=== PATIENT | male | born 1955 ===

== ENCOUNTER 2022-08-28 11:48 | Outpatient (REF) | payer MEDICARE, OTHER, SELFPAY ==
[2022-08-28 13:29] LABS: Influenza A PCR NEGATIVE (Negative); Influenza B PCR NEGATIVE (Negative); Resp Syncy Virus RNA Qual PCR NEGATIVE (Negative); SARS COV2 PCR INHOUSE NEGATIVE (Negative)
== END 2022-08-28 11:49 | disposition home or self-care (01) ==
LOC: HO.LNP 11:48
PROVIDERS: Visit Provider Nurse Practitioner Family
DX: Z20.822 Contact with and (suspected) exposure to COVID-19 (principal); J06.9 Acute upper respiratory infection, unspecified
CPT/HCPCS: 0241U

== ENCOUNTER 2024-10-12 14:59 | Outpatient (REF) | payer MEDICARE, OTHER, SELFPAY | END 2024-10-12 15:00 | disposition home or self-care (01) | LOC: HO.LNP 14:59 | PROVIDERS: Visit Provider Physician Assistant | DX: H61.22 Impacted cerumen, left ear (principal); H66.003 Acute suppurative otitis media without spontaneous rupture of ear drum, bilateral; J02.9 Acute pharyngitis, unspecified | CPT/HCPCS: 69210; 87070; 99202 ==

== ENCOUNTER 2024-10-12 14:59 | Outpatient (AMB) | payer MEDICARE, OTHER, SELFPAY ==
--- NOTE | 2024-10-12 15:50 | AM.OFFWIN_ITS ---
Intake Vital Signs 10/12/24 15:53 Height 6 ft 3 in Weight 265 lb BMI 33.1 BP 124/80 Blood Pressure Location Rt brachial Position Sitting Pulse 79 Pulse Source Pulse Oximeter Temp 97.5 F Temp Source Oral Pulse Oximetry (%) 97 Oxygen Delivery Method Room Air Intake Visit Reasons: EP Sore throat(white patch), body aches Intake Note: Patient here for body aches, sore throat that has been present for about 1 week. Patient Tobacco Use Status: Former Tobacco user Allergies No Known Allergies Allergy (Verified 10/12/24 15:55) HPI HPI Comments History of Present Illness Details History - The patient is a 69-year-old male pres enting with ear pain and throat symptoms. - Ear complaints include wax buildup and bilateral discomfort with tenderness, treated at home with Q-tips and rubbing alcohol, potentially worsening the condition. - The throat symptoms reported include a scratchy sensation, a cough, and observing a white nodule on the adenoid. These symptoms have been persistent for about two weeks. - Other respiratory symptoms include a r unny nose for one to two weeks, and a scratchy throat since the night before, but no fever was presently recorded. - COVID-19 testing was performed, yieldi ng negative results for both the patient and his following a period of general malaise for about five days. - The patient denies experiencing shortn ess of breath, wheezing, headache, or fatigue. - No alcohol or tobacco use since quitti ng smoking in 1984. Previously managed ear infections with antibiotics in past occurrences. - The patient has employed home interven tions such as a neti pot and gargling for symptom relief. Physical Exam General: Cooperative, healthy appearing, comfortable and no acute distress Orientation/consciousness: Patient oriented x3 Limitations: No limitations Head: Normal to inspection Ears: Hearing grossly normal bilaterally, external ears normal, TM's small purulent effusions bilaterally, after cerumen removed from left ear Nose: Normal external nose present, Normal nares present and No nasal discharge present Face and sinus: Normal facial exam and Yes sinuses nontender Mouth: Normal oral and palatal mucosa present and moist mucous membranes Throat: Yes tonsils normal, Yes uvula midline. Posterior oropharynx erythema, no exudate noted. Eyes: Appearance normal, both eyes and all related structures Neck: Normal visual inspection Respiratory: normal respiratory effort Skin: No rashes or lesions noted Neuro: Patient oriented x3 Extremities: Normal to inspection and Yes no clubbing, cyanosis or edema PFSH Social History Patient Tobacco Use Status: Former Tobacco user Review of Systems Const All systems reviewed & are unremarkable except as noted in HPI and below Physical Exam Vital Signs: Last Vital Signs Temp 97.5 F 10/12/24 15:53 Pulse 79 10/12/24 15:53 BP 124/80 10/12/24 15:53 Pulse Ox 97 10/12/24 15:53 Oxygen Delivery Method Room Air 10/12/24 15:53 BMI result Body Mass Index 33.1 Office Procedures Cerumen Removal From which ear canal was the cerumen removed: left Removal: irrigation and otoscope w/curette Notes: patient tolerated procedure well, no complications and ear canal clear [id number] Irrigation/Lavage Assessment & Plan Assessment & Plan (1) Impacted cerumen, left ear: Code(s): H61.22 - Impacted cerumen, left ear Plan: The patient presents with acute pharyngitis and bilateral acute otitis media, associated with wax impaction. Commencing treatment with Augmentin will target both ear infections and any underlying streptococcal pharyngitis. The initial antibiotic treatment will extend over five days, with the potential to adjust duration based on the throat culture results. A throat culture has been requested to confirm bacterial presence, ensuring appropriate antibiotic duration. If positive, will need to add 5 days of treatment and call patient. The patient has been advised against using Q-tips for earwax management, and instead, Debrox drops are proposed for effective softening and maintenance of ear passages. This plan focuses on resolving the current infections while preventing recurrence through proper ear care education. Patient was informed and verbally consented to the use of an ambient scribe for clinic note documentation during this visit (2) Otitis media: Code(s): H66.90 - Otitis media, unspecified, unspecified ear Qualifiers: Otitis media type: suppurative Chronicity: acute Laterality: bilateral Recurrence: non-recurrent Spontaneous tympanic membrane rupture: without spontaneous rupture Qualified Code(s): H66.003 - Acute suppurative otitis media without spontaneous rupture of ear drum, bilateral Plan: as above (3) Acute pharyngitis: Code(s): J02.9 - Acute pharyngitis, unspecified Qualifiers: Pharyngitis/tonsillitis etiology: unspecified etiology Qualified Code(s): J02.9 - Acute pharyngitis, unspecified Plan: as above Orders: Orders Throat Culture Today J02.9 - Acute pharyngitis, unspecified Medications: New amoxicillin-pot clavulanate 875-125 mg 1 tab PO Q12H 10 tabs 0RF Coding Level of Care Code New Pt Level 4 (20558) Diagnoses Impacted cerumen, left ear H61.22 Non-recurrent acute suppurative otitis media of both ears without spontaneous rupture of tympanic membranes H66.003 Otitis media type: suppurative Chronicity: acute Laterality: bilateral Recurrence: non-recurrent Spontaneous tympanic membrane rupture: without spontaneous rupture Acute pharyngitis, unspecified etiology J02.9 Pharyngitis/tonsillitis etiology: unspecified etiology CPT Codes Office Procedure - CPT: 98419-Gey Irrigation/Lavage ([id number])
[2024-10-12 15:53] VITALS: BP 124/80; PULSE 79; TEMP 36.4; O2SAT 97; BMI 33.1
== END 2024-10-12 16:21 | disposition home or self-care (01) ==
PROVIDERS: Visit Provider Physician Assistant
DX: J02.9 Acute pharyngitis, unspecified (principal); H66.003 Acute suppurative otitis media without spontaneous rupture of ear drum, bilateral; H61.22 Impacted cerumen, left ear

== ENCOUNTER 2025-10-12 15:43 | Outpatient (AMB) | payer MEDICARE, OTHER, SELFPAY ==
[2025-10-12 15:58] VITALS: BP 132/78; PULSE 64; RESP 17; TEMP 36.6; O2SAT 98; BMI 34.4
--- NOTE | 2025-10-12 15:58 | MHC.OFFWIV ---
Intake Vital Signs 10/12/25 15:58 Height 6 ft 3 in Weight 275 lb 8 oz BMI 34.4 BP 132/78 Blood Pressure Location Lt brachial Position Sitting Respiration 17 Pulse 64 Pulse Source Pulse Oximeter Temp 97.9 F Temp Source Oral Pulse Oximetry (%) 98 Oxygen Delivery Method Room Air Intake Visit Reasons: EP Sinus infection? Flu a+ last week Intake Note: Pt is here today for possible sinus infection. Pt states he tested positive for flu a week ago. Patient Tobacco Use Status: Former Tobacco user Allergies No Known Allergies Allergy (Verified 10/12/25 15:58) Do you need a note to return to daycare/school/sports/work: No HPI HPI Comments History of Present Illness Details Patient is a 70yo M who presents to office with concern sinusitis He tested + for Influenza A 1 week ago Taking Robitussin without relief States this morning he felt a little better but worsening sinus pressure/foul odor States he used neddy pot sinus rinses with foul odor and a lot of mucus discharge from nose States cough is lingering and slight wheeze Feels like phlegm is in lungs and unable to coughWorse in the morning after using CPAP at night No CP or SOB No body aches, fever or chills currently; he did have them last week. PFSH Social History Patient Tobacco Use Status: Former Tobacco user Review of Systems Const Denies body aches, Denies chills, Reports fatigue and Denies fever(s) ENT Denies otalgia, Reports nasal congestion, Denies sinus pain, Denies sore throat and Reports other (foul odor from sinus mucus) Card Denies chest pain Resp Reports cough GI Denies abdominal pain, Denies diarrhea and Denies vomiting Musc Denies myalgias Endo Reports fatigue Physical Exam Exam Exam: General: Non-toxic, NAD. Speaking full sentences. Skin: Warm dry throughout Eye: EOMI HENT: Airway patent. Uvula midline. No pharyngeal erythema or edema. No INSPECTOR SOLDERING. Slightly edematous turbinates. No septal hematoma Bilateral canals clear. TM non-erythematous, non-bulging. No TM perforation or hemotympanum noted. Respiratory: CTA bilaterally. No wheezes, rales or rhonchi Cardiac: RRR. No murmur MSK: Full ROM extremities. Neurology: Alert. No aphasia or facial droop. Gait without abnormality Psych: Good mood and affect Vital Signs: Last Vital Signs Temp 97.9 F 10/12/25 15:58 Pulse 64 10/12/25 15:58 Resp 17 10/12/25 15:58 BP 132/78 10/12/25 15:58 Pulse Ox 98 10/12/25 15:58 Oxygen Delivery Method Room Air 10/12/25 15:58 BMI result Body Mass Index 34.4 Assessment & Plan Assessment & Plan (1) Upper respiratory tract infection: Code(s): J06.9 - Acute upper respiratory infection, unspecified Qualifiers: URI type: unspecified viral URI Qualified Code(s): J06.9 - Acute upper respiratory infection, unspecified Plan: Patient seen and evaluated. Lungs CTA No sinus of bacterial sinusitis on exam Prednisone (with food. Avoid nsaids and taking too late at night) Tessalon Discussed s/s that are concerning for bacterial infection and when to call and patient gave verbal understanding and had no additional questions or concerns at time of discharge All questions answered Medications: New benzonatate 100 mg PO BID-TID PRN 20 caps 0RF cough prednisone 40 mg (2 x 20 mg) PO DAILY 10 tabs 0RF Coding Level of Care Code Est Pt Level 3 (80028) Diagnoses Viral upper respiratory tract infection J06.9 URI type: unspecified viral URI
--- OUTSIDE RECORDS SUMMARY | 2025-10-12 18:54 | XMS_ITS | Patient Health Record ---
Author Organization [facility] Address [address] [place] [id number] Care Team Providers Care Postmaster Relief Name Role Phone Prince Alejandra DO Primary Care Provider Unavailab chuckie Ford Lou Unavailable [phone] Allergies No Known Allergies Reason For Referral No Information Medications Medication SIG (Take, Route, Frequency, Duration) Notes Start Date End Date Status Turmeric Active Vitamin D3 25 MCG (1000 UT) 1 tablet Ora lly Once a day; Duration: 30 day(s) Active Probiotic Active Allopurinol 100 MG 1 tablet Orally Once a day; Duration: 30 day(s) Active Fish Oil 1200 MG 1 capsule Orally bid Active Gabapentin 300 MG 1 capsule Orally Onc e a day; Duration: 30 day(s) Active Myrbetriq 50 MG 1 tablet Orally Once a day; Duration: 30 day(s) Active Magnesium 400 MG 1 cap Orally qd Active Meloxicam 15 MG 1 tablet Orally Once a day; Duration: 30 day(s) Active Tamsulosin HCl 0.4 MG 1 cap Orally qd Active Allergy Relief 50 MCG/ACT 1 spray in eac h nostril Nasally Once a day; Duration: 30 day(s) Active CoQ-10 Active Saline Active cpap Active Lisinopril 20 MG 1 tablet Orally Once a day Active Aspirin 81 MG 1 tablet Orally Once a day Active Pravastatin Sodium 10 MG 1 tab Orally Once a day Active Social History Tobacco Use: Social History Observation Description Date Details (start date - stop date) Former Smoker NA - NA Tobacco Use: Question Answer Notes Are you a: former smoker How long has it been since you last smoked? > 10 years Problems Problem Type SNOMED Code ICD Code Onset Dates Problem Status W/U Status Risk Notes Problem Dyslipidemia (819272061) Dyslipidemia (E78.5) Active confirmed Problem Coronary artery disease (36416876) CAD (coronary artery disease) (I25.10) Active confirmed per cath 18 years ago - 30% stenosis Problem Sleep apnea (93656639) Sleep apnea (G47.30) Active confirmed Problem Abnormal ECG (696913809) Abnormal ECG (R94.31) Active confirmed Non specific St T wave abnormality Problem Gout (25047184) Gout (M10.9) Active confirmed Problem Dyspnea on exertion (28374850) WILLIAMSON (dyspnea on exertion) (R06.09) Active confirmed ? cause Problem Hypertension (79562223) HTN (hypertension) (I10) Active confirmed Problem Obese (424984335) Obese (E66.9) Active confirmed Problem Preoperative cardiovascular examination (872479657) Encounter for pre-operative cardiovascular clearance (Z01.810) Active confirmed intermediat erisk Plan Of Treatment No Information Insurance Providers Payer Name Payer Address Payer Phone Subscriber Number Group Number Insured Name Patient Relationship to Insured Coverage Start Date Coverage End Date [employer] [place] [employer] [address] [place] [phone] [id number] Ketan Rdz Self - patient is the insured Cig Medicare Supplement [address] [place] [phone] [id number] Ketan Rdz Self - patient is the insured Medical (General) History Medical History History ICD Code HTN ANXIETY CAD CALCIFICATION HLD PRE DM SUSAN GOUT HYPERPLASIA DIVERTICULOSIS HYPERPARATHYROIDISM Sleep apnea Benign prostatic hyperplasia (BPH) Surgical History Surgery Date(Month/Year) Chromio clavicular Ruptured bicept, both arms Left knee Parathyroidectomy Hernia repair LESI APPENDECTOMY HEART CATH COLONOSCOPY THYROIDECTOMY
--- OUTSIDE RECORDS SUMMARY | 2025-10-12 18:54 | XMS_ITS | Patient Health Record ---
Author Organization [facility] Address [address] [place] [address] Care Team Providers Care Laborer Wood Preserving Plant Name Role Phone Prince Alejandra Primary Care Provider Ford Calzada Unavailable [phone] Allergies No Known Allergies Reason For Referral No Information Medications Medication SIG (Take, Route, Frequency, Duration) Notes Start Date End Date Status Vitamin D3 25 MCG (1000 UT) Tablet 1 tablet Orally Once a day; Duration: 30 day(s) Active Gabapentin 300 MG Capsule 1 capsule Orally Once a day; Duration: 30 day(s) Active Tamsulosin HCl 0.4 MG Capsule Extended Release 1 cap Orally qd *Pick strength-form from [facility] for eRX* Active Probiotic *Pick strength-f orm from [facility] for eRX* Active Myrbetriq 50 MG Tablet Extended Release 24 Hour 1 tablet Orally Once a day; Duration: 30 day(s) Active CoQ-10 *Pick strength-f orm from [facility] for eRX* Active Aspirin 81 MG Tablet Chewable 1 tablet Orally Once a day Active Lisinopril 20 MG Tablet 1 tablet Orally Once a day Active Pravastatin Sodium 10 MG Tablet 1 tab Orally Once a day Active Magnesium 400 MG Capsule 1 cap Orally qd Active Allergy Relief 50 MCG/ACT Suspension 1 spray in each nostril Nasally Once a day; Duration: 30 day(s) Active Turmeric *Pick strength-f orm from [facility] for eRX* Active Saline *Pick strength-f orm from [facility] for eRX* Active CPAP *Reorder from [facility] for eRx and Interaction Alerts* Active Fish Oil 1200 MG Capsule 1 capsule Orally bid Active Meloxicam 15 MG Tablet 1 tablet Orally Once a day; Duration: 30 day(s) Active Allopurinol 100 MG Tablet 1 tablet Orally Once a day; Duration: 30 day(s) Active Social History Social History Additional Details Category Social Info Options Details Migrated Social History Migrated Social History (Residence:):Home (Exercise:):Yes (Occupation:): Retired (Marital status:):Unmarried (Tobacco Use:): Are you a:: former smoker , How long has it been since you last smoked?: > 10 years (Recreational Drug Use:):No (Caffeine:):No DECAF COFFEE AND OCCASIONAL POP (Alcohol:):Positive Occassionally Problems Problem Type SNOMED Code ICD Code Onset Dates Problem Status W/U Status Risk Notes Problem Hypertension (64609125) HTN (hypertension) (I10) Active confirmed Problem Abnormal ECG (868294416) Abnormal ECG (R94.31) Active confirmed Non specific St T wave abnormality Problem Gout (58991535) Gout (M10.9) Active confirmed Problem Dyspnea on exertion (14740881) WILLIAMSON (dyspnea on exertion) (R06.09) Active confirmed ? cause Problem Obese (752557781) Obese (E66.9) Active confirmed Problem Dyslipidemia (281631583) Dyslipidemia (E78.5) Active confirmed Problem Sleep apnea (11032262) Sleep apnea (G47.30) Active confirmed Problem Preoperative cardiovascular examination (850382278) Encounter for pre-operative cardiovascular clearance (Z01.810) Active confirmed intermediat erisk Problem Coronary artery disease (09152460) CAD (coronary artery disease) (I25.10) Active confirmed per cath 18 years ago - 30% stenosis Plan Of Treatment No Information Insurance Providers Payer Name Payer Address Payer Phone Subscriber Number Group Number Insured Name Patient Relationship to Insured Coverage Start Date Coverage End Date C[employer] Medicare Supplement [address] [place] [phone] [id number] Ketan Rdz Self - patient is the insured Medical (General) History Medical History History ICD Code HTN ANXIETY CAD CALCIFICATION HLD PRE DM SUSAN GOUT HYPERPLASIA DIVERTICULOSIS HYPERPARATHYROIDISM Sleep apnea Benign prostatic hyperplasia (BPH) Surgical History Surgery Date(Month/Year) Chromio clavicular Ruptured bicept, both arms Left knee Parathyroidectomy Hernia repair LESI APPENDECTOMY HEART CATH COLONOSCOPY THYROIDECTOMY
--- OUTSIDE RECORDS SUMMARY | 2025-10-12 18:55 | XMS_ITS | Patient Health Record ---
Author Organization [facility] Address [address] [place] [address] Care Team Providers Care Neuropsychiatric Aide Name Role Phone Torri Alejandraie Primary Care Provider [phone] Allergies Allergen (clinical drug ingredient) Drug/Non Drug Allergy documented on EMR Reaction Allergy Type Onset Date Status ciprofloxacin Cipro shortness of breath and joint pain Drug Allergy 12/03/2023 Active Results Component Value Reference Range Notes CR : ABDOMEN FLAT AND UPRIGH T Reviewed date:02/18/2025 08:29:59 AM Interpretation: Performing Lab: Notes/Report: ABDOMEN FLAT AND UPRIGHT X-RAY REASON FOR EXAM: Abdominal pain. Supine and upright views of the abdomen show a nonobstructive bowel-gas pattern. Postoperative change projected over right lower quadrant. Pelvic phleboliths. No suspicious masses or calcifications. No evidence of pneumoperitoneum on upright view. Imaged lung bases show no focal infiltrate. Osseous anatomy shows degenerative change with levoscoliosis. IMPRESSION: 1. No acute abdominal findings radiographically. 2. Correlation and followup as warranted. ELECTRONICALLY SIGNED BY Cheyenne Palma M.D. on Monday, February 17, 2025 12:12:10 PM D: 02-12-2025 T: 02-12-2025 - kh GP: [id number] Urine Dipstick w/ microscopi c for symptoms Reviewed date:02/12/2025 02:22:13 PM Interpretation: Performing Lab:1[facility] Notes/Report: N/A CR : Toe Left 3 View Reviewed date:12/23/2024 03:32:11 PM Interpretation: Performing Lab: Notes/Report: PSA Reviewed date:12/08/2024 10:02:56 AM Interpretation: Performing Lab:[address] [place] [address] [facility] Notes/Report: FASTING HbA1C (Glycohemoglobin) Reviewed date:12/08/2024 10:02:56 AM Interpretation: Performing Lab:1[facility] Notes/Report: FASTING LIPID PROFILE Reviewed date:12/08/2024 10:02:56 AM Interpretation: Performing Lab:[address] [place] [address] [facility] Notes/Report: FASTING COMPREHENSIVE PROFILE Reviewed date:12/08/2024 10:02:56 AM Interpretation: Performing Lab:[address] [place] [address] [facility] Notes/Report: FASTING CR : Foot, left 3 view Reviewed date:12/08/2024 12:41:12 PM Interpretation: Performing Lab: Notes/Report: LEFT FOOT AND LEFT TOE X-RAY HISTORY: Left foot contusion. FOOT: AP, lateral and oblique views of the left foot show no displaced fracture, dislocation, or radiopaque soft tissue foreign body. Vascular calcifications noted involving 1st digit. Changes of early juxtaarticular calcification at first metatarsophalangeal joint noted. No evidence of erosive presentation at this time. Pre-Achilles and plantar soft tissues show plantar soft tissue calcification. No soft tissue swelling. IMPRESSION: 1. No acute left foot findings radiographically. 2. Early evolution osteoarthritic change, 1st metatarsophalangeal joint identified nonspecifically. 3. Correlation and follow up as warranted. TOE: AP, lateral and oblique views of the left forefoot, focused on 5th digit was performed as well. there is soft tissue swelling noted. There is no displaced fracture or dislocation. There is no radiopaque soft tissue foreign body. Ankylosis of the middle and distal phalanx appreciated. IMPRESSION: 1. Localized soft tissue swelling 5th digit, without displaced fracture or dislocation. 2. Correlation and follow up as warranted. ELECTRONICALLY SIGNED BY Cheyenne Palma M.D. on Sunday, December 08, 2024 12:23:26 PM D: 12-04-2024 T: 12-08-2024 - gb GP: [id number] Medications Medication SIG (Take, Route, Frequency, Duration) Notes Start Date End Date Status Pravastatin Sodium 10 MG Tablet TAKE 1 TABLET BY MOUTH EVERY DAY; Duration: 90 Active Fish Oil 1000 MG Capsule 1 capsule Orall y Once a day Active Coenzyme Q-10 200 MG Capsule 1 capsule with a meal Orally Once a day Active Allopurinol 100 MG Tablet TAKE 1 TABLET BY MOUTH EVERY DAY; Duration: 90 days Active Sildenafil Citrate 20 MG Tablet 1 tablet Orally Once a day Active Tamsulosin HCl 0.4 MG Capsule TAKE 1 CAPSULE BY MOUTH EVERY DAY Orally Once a day; Duration: 90 days Active Baby Aspirin 81 MG Tablet Chewable 1 tablet Orally Once a day Active Gabapentin 300 MG Capsule TAKE 1 CAPSULE BY MOUTH EVERY DAY; Duration: 30 days Active Fluticasone Propionate 50 MCG/ACT Suspension 1 spray in each nostril Nasally Once a day/Q HS QHS Active Vitamin D 400 UNIT Capsule 2 capsules Or ally Once a day Active Sulfamethoxazole-Trimethopr im 800-160 MG Tablet 1 tablet Orally bid; Duration: 7 days 02/12/2025 Active Magnesium 1 with each meal Act frank Cortisporin-TC 3.3-3-10-0.5 MG/ML Suspension 5 drops into affected ear Otic Three times a day; Duration: 7 days 05/17/2025 Active Myrbetriq 50 MG Tablet Extended Release 24 Hour Oral; Duration: 30 Days Active Vitamin C 1000 MG Tablet 1 tablet Orally Once a day; Duration: 30 days Active Probiotic - Tablet Delayed Release as directed Orally Active Turmeric 450 mg capsule 1 PO Qd Active Meloxicam 15 MG Tablet TAKE 1 TABLET BY MOUTH EVERY DAY; Duration: 30 Active Lisinopril 20 MG Tablet TAKE 1 TABLET BY MOUTH EVERY DAY; Duration: 90 Active Immunizations Vaccine Route Administration Date Status Comme nts Arexvy Unknown 07/10/2023 Administered COVID Unknown 07/10/2023 Administered Influenza Quadrivalent Adjuvanted Unknown 08/05/2023 Administered Prevnar 13 IM Intramuscular 01/01/2020 Administered Prevnar 20 Unknown 08/05/2023 Administered Social History Tobacco Use: Social History Observation Description Date Details (start date - stop date) Former Smoker NA - NA Social History Drugs/Alcohol: Social Info Question Answer Notes Drug Use Have you used drugs other than those for medical reasons in the past 12 months? No How often do you drink alcohol? Occasional 1 beer once a month at the most. Drinks wine if they eat out occasionally Diabetes/ Drugs and Alcohol Social Info Question Answer Notes Tobacco use Tobacco: never smoked Drug/Alcohol: Social Info Question Answer Notes AUDIT-C (Standard) Did you have a drink containing alcohol in the past year? Yes How often did you have a drink containing alcohol in the past year? Monthly or less (1 point) How many drinks did you have on a typical day when you were drinking in the past year? 1 or 2 drinks (0 point) How often did you have six or more drinks on one occasion in the past year? Never (0 point) Points 1 Interpretation Negative Tobacco Use: Social Info Question Answer Notes Tobacco Use/Smoking Status: former smoker When did you start smoking? at age 15 When did you stop smoking ? at age 29 Additional Details Category Social Info Options Details Miscellaneous: Exercise: He was until his back started hurting, unable to go the past month, doing the gardening. 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 He is completely retired Caffeine: Decaf coffee onl y, occasional can of pop Living with: he lives with hi s significant other and he lives between here and [facility] Other Providers Other Physicians and Providers Habilitative Interventionist - Dr. Guerra (does not see routinely), Urologist - Dr. Slick Tapia, Surgeon - Dr. 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 quit smoking in 11/1984, was in financing, 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 quit smoking in 11/1984, he h as a less than 30pack year history, was in financing, 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 quit smoking in 11/1984, he h as a less than 30pack year history, was in financing, 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 quit smoking in 11/1984, he h as a less than 30pack year history, was in financing, 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 quit smoking in 11/1984, he h as a less than 30pack year history, was in financing, 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 quit smoking in 11/1984, he h as a less than 30pack year history, was in financing, 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 [employer] - Significant other quit smoking in 11/1984, he has a less than 30pack year history, was in financing, retired. [employer] - Significant other quit smoking in 11/1984, he has a less than 30pack year history, was in financing, retired. [employer] - Significant other quit smoking in 11/1984, he has a less than 30pack year history, was in financing, retired. 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 [employer] - Significant other quit smoking in 11/1984, he has a less than 30pack year history, was in financing, retired. [employer] - Significant other quit smoking in 11/1984, he has a less than 30pack year history, was in financing, retired. 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 [employer] - Significant other quit smoking in 11/1984, he has a less than 30pack year history, was in financing, retired. [employer] - Significant other quit smoking in 11/1984, he has a less than 30pack year history, was in financing, retired. [employer] - Significant other Problems Problem Type SNOMED Code ICD Code Onset Dates Problem Status W/U Status Risk Notes Problem Anxiety (61574715) Anxiety (F41.9) Active confi rmed Problem Sleep apnea (60810862) Sleep apnea (G47.30) Active confirmed Problem Fatty liver (483847427) Fatty liver (K76.0) Active confirmed Problem Disorder of lumbar disc (470230457) Lumbar disc disease (M51.9) Active confirmed Problem Jaundice (78669139) Elevated bilirubin (R17) Active confirmed Problem Essential hypertension (15979297) Essential hypertension (I10) Active confirmed Problem Gout (63298040) Gout (M10.9) Active confirmed Problem Diverticular disease of colon (179520266) Diverticulosis (K57.90) Active confirmed Problem Obstructive sleep apnea (24212102) Obstructive sleep apnea (G47.33) Active confirmed Problem Morbid obesity (disorder) (793901551) Morbid (severe) obesity due to excess calories (E66.01) Active confirmed Problem Carpal tunnel syndrome (00676318) Right carpal tunnel syndrome (G56.01) Active confirmed Problem Kidney stone (68104852) Kidney stones (N20.0) Active confirmed Problem Mixed hyperlipidemia (855358562) Mixed hyperlipidemia (E78.2) Active confirmed Problem Sensorineural hearing loss of bilateral ears (disorder) (805119627) Sensorineural hearing loss, bilateral (H90.3) Active confirmed Problem Paresthesia (finding) (65304571) Paresthesia of skin (R20.2) Active confirmed UE's and LE's Problem Lower urinary tract symptoms due to benign prostatic hypertrophy (96499483231545) Benign non-nodular prostatic hyperplasia with lower urinary tract symptoms (N40.1) Active confirmed Problem Atherosclerosis of coronary artery (024124738) Coronary atherosclerosis due to calcified coronary lesion (I25.84) Active confirmed Problem Degeneration of lumbosacral intervertebral disc (50466419) DDD (degenerative disc disease), lumbosacral (M51.37) Active confirmed Problem Heart block (487212961) Heart block (I45.9) Active confirmed Problem Atherosclerotic heart disease of [place] coronary artery without angina pectoris (222253525026801) Coronary artery disease involving [place] heart without angina pectoris, unspecified vessel or lesion type (I25.10) Active confirmed Problem History of gout (996609610) History of gout (Z87.39) Active confirmed Problem Acute maxillary sinusitis (79403422) Acute non-recurrent maxillary sinusitis (J01.00) Active confirmed Problem Prediabetes (007945442) Pre-diabetes (R73.03) Active confirmed Problem Elevated PSA (936242347) PSA elevation (R97.20) Active confirmed Problem Allergic rhinitis (06728134) Allergic rhinitis, unspecified seasonality, unspecified trigger (J30.9) Active confirmed Problem Meniere's disease of left inner ear (disorder) (3309145471333445) 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) Active confirmed Problem Atherosclerosis of aorta (70806101) Calcification of aorta (I70.0) Active confirmed Vital Signs Heart Rate 73 /min 05/17/2025 Temperature 97.8 degrees Fahrenheit 05/17/2025 Oximetry 96 % 05/17/2025 Blood pressure diastolic 76 mm Hg 05/17/2025 Weight-kg 124.19 kg 05/17/2025 Height 74.5 in 05/17/2025 Blood pressure systolic 116 mm Hg 05/17/2025 Weight 273.8 lbs 05/17/2025 BMI 34.68 kg/m2 05/17/2025 Procedures Procedure Date Ordered Date Performed Result Body Sit e Cerumen, removal, 1 or both ears 05/03/2025 05/03/2025 N/A TYMPANOMETRY 05/17/2025 05/17/2025 N/A Encounters Encounter Location Date Provider Diagnosis [facility] [place] [address] [place] [address] 12/04/2024 Prince Alejandra Essential hypertensi on I10 ; Mixed hyperlipidemia E78.2 ; Pre-diabetes R73.03 ; Coronary artery disease involving [place] heart without angina pectoris, unspecified vessel or lesion type I25.10 ; Encounter for screening for malignant neoplasm of prostate Z12.5 ; Contusion of left foot, initial encounter S90.32XA and Right carpal tunnel syndrome G56.01 [facility] [place] [address] [place] [address] 02/12/2025 Prince Alejandra LLQ abdominal pain R10.32 [facility] [address] [place] [address] 05/03/2025 Prince Alejandra Sensation of fullnes s in left ear H93.8X2 ; Impacted cerumen of left ear H61.22 ; Other infective acute otitis externa of left ear H60.392 and Non-recurrent acute serous otitis media of left ear H65.02 [facility] [place] [address] [place] [address] 05/17/2025 Prince Alejandra Sensation of fullnes s in left ear H93.8X2 ; Other infective acute otitis externa of left ear H60.392 and Numbness of right hand R20.0 [facility] [place] [address] [place] [address] 12/08/2024 Prince Alejandra Pre-diabetes R73.03 [facility] [place] [address] [place] [address] 12/08/2024 Prince Alejandra Screening for prosta te cancer Z12.5 ; PSA elevation R97.20 and Encounter for screening for malignant neoplasm of prostate Z12.5 [facility] [place] [address] [place] [address] 03/22/2025 Prince Alejandra [facility] [place] [address] [place] [address] 05/19/2025 Prince Alejandra Assessments Encounter Date Diagnosis (ICD Code) Assessment Notes Treatment Notes Treatment Clinical Notes Section Notes 12/04/2024 Essential hypertension (ICD-10 - I10) patient is stable on current therapy, will check lab today 12/04/2024 Mixed hyperlipidemia (ICD-10 - E78.2) will check lab on the patient today and notify of the results 12/08/2024 Pre-diabetes (ICD-10 - R73.03) 12/08/2024 Screening for prostate cancer (ICD-10 - Z12.5) 02/12/2025 LLQ abdominal pain (ICD-10 - R10.32) will check a urine on the patient today as well as a KUB in upright and then notify him of the results. My clinical suspicion and based off of his history is he probably has a flare of diverticulitis. Since he is not febrile I did not see a reason to do a CBC. His urine is clear. We will put him on bactrim DS b.i.d. x7 days beacuse he has sensitivity to cipro and have him increase his fiber and fluids and we will see if this can improve. He admits after the fact he has been eating a lot of pistachios as well. he is to f/u if not improving or worsening 05/03/2025 Impacted cerumen of left ear (ICD-10 - H61.22) see above 05/03/2025 Sensation of fullness in left ear (ICD-10 - H93.8X2) provide an ear wash of the left ear and then decide on treatment. Advised the patient I think his fullness is related to fluid behind the TM and possibly from some Eustachian tube dysfunction. He also has a little bit of exudate in the canal up to the TM that looks like it could be fungus because of the speckled appearance. We are going to treat him with amoxicillin 875 b.i.d. for 10 days have him continue with his nasal steroid and we are going to treat him with vosol otic drops to see if we can help what appears to be a fungal infection he is also due start drying his ears out with hair rotary drier feeder. He is to follow up in 2 weeks to reassess and we will likely do a tympanogram 05/17/2025 Sensation of fullness in left ear (ICD-10 - H93.8X2) will obtain a tympanogram and then also switch him over to neomycin otic drops since he did not get improvement with the VoSol otic and the hair rotary drier feeder. The tympanogram did not show good movement in the left ear. We gave him the option of continuing with his nasal steroid and trying a different ear drop but this would not help with the fullness necessarily in the left ear since he has already been on the Flonase or he could go see ear nose and throat and he opted to go ahead and see ear nose and throat. pt will continue nasal steroid and hold on new ear drop due to cost and will go ahead with the ENT appointment Angelica cade 05/17/2025 Other infective acute otitis externa of left ear (ICD-10 - H60.392) see above, he is to f/u if not improving 05/17/2025 Numbness of right hand (ICD-10 - R20.0) will get him in with dr. ma for evaluation, pt would prefer someone besides dr. jose 12/04/2024 Pre-diabetes (ICD-10 - R73.03) will check a hemoglobin A1c 05/03/2025 Other infective acute otitis externa of left ear (ICD-10 - H60.392) see above 12/08/2024 PSA elevation (ICD-10 - R97.20) 12/04/2024 Coronary artery disease involving [place] heart without angina pectoris, unspecified vessel or lesion type (ICD-10 - I25.10) pt follows with dr. guerra and most recently with Dr. Tran. He states he had a stress test done this past year but he is unsure of the results so we will call Dr. Tran's office to see if we can get those Jenise Lundy Silvana 12/04/2024 10:06:27 AM > PC to [facility] and was advised records would be faxed. Direct fax number provided. 12/08/2024 Encounter for screening for malignant neoplasm of prostate (ICD-10 - Z12.5) 05/03/2025 Non-recurrent acute serous otitis media of left ear (ICD-10 - H65.02) see above 12/04/2024 Encounter for screening for malignant neoplasm of prostate (ICD-10 - Z12.5) will check a PSA on the patient today 12/04/2024 Contusion of left foot, initial encounter (ICD-10 - S90.32XA) will obtain an x-ray of the left foot to evaluate further. Advised the patient there may be a small little injury to the left 5th toe but I can not see a distinct fracture I will have Radiology over-read in the meantime I would just like for him to stay in a stiff-soled shoe and allow this to heal. 12/04/2024 Right carpal tunnel syndrome (ICD-10 - G56.01) advised the patient we will get him in with a new orthopedic surgeon for evaluation, he had his nerve conduction testing done with Neurology 05/17/2025 Other will try to get a copy of the stress test from dr. tran Plan Of Treatment Pending Test Test Name Order Date COMPREHENSIVE PROFILE 04/03/2021 LIPID PROFILE 04/03/2021 HbA1C (Glycohemoglobin) 04/03/2021 PSA 04/03/2021 Future Test Test Name Order Date HbA1C (Glycohemoglobin) 03/03/2024 PSA 03/03/2024 HbA1C (Glycohemoglobin) 06/07/2025 PSA 12/08/2025 Next Appt Details Provider Name:Prince Alejandra , 11/22/2025 10:15:00 AM, [address] [place], [address], Insurance Providers Payer Name Payer Address Payer Phone Subscriber Number Group Number Insured Name Patient Relationship to Insured Coverage Start Date Coverage End Date MEDICARE [address] [place] [address] [id number] KajalAnshuKetan Self - patient is the insured [employer] Supplemental Benefits [address] [place] [phone] [id number] Ketan Rdz Self - patient is the insured 8 [employer] [place] [address] [place] [address] [id number] Ketan Rdz Self - patient is the insured 7 [employer] on behalf of Medicare [address] [place] [id number] Ketan Rdz Self - patient is the insured 5 5 Medications Administered Medication Instructions Date of Administration Dosage Notes Celestone (Betamethasone Sodium Phosphate) 11/21/2012 1 mL Lot # [id number] Pt tolerated well without complaint nor complications and left ambulatory. Celestone (Betamethasone Sodium Phosphate) 10/23/2018 2 mL Celestone (Betamethasone Sodium Phosphate) 07/31/2019 2 mL Depo Medrol 80mg 11/21/2012 1 mL Lot # [id number] Pt tolerated well without complaint nor complications and left ambulatory. Medical (General) History Medical History History ICD Code hypertension - 2005 Essential hypertension I10 Anxiety F41.9 allergic rhinitis Allergic rhinitis, unspecified seasonali ty, unspecified trigger J30.9 coronary artery disease - mi ld, cath 11/2010 heart cath showed minimal 30% blockage, no damage -Dr. 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 dizziness s/none now, back pain persist 11/14/2020 - [facility] - urgency/frequency. Tx discussed, meds discussed, possible urolift??? AWV 2020 - Completed the Covid Vaccines AWV 2020 - Pt. reports that he had heat exhaustion years past AWV 2020 - Pt. says he wears CPAP at [facility] ht he has seen dr. tran most recently and had a stress test in 2023, but he is unsure of the results first degree AV block seen on EKG with mk Tran 12/2023 normal myocardial perfusion scan 01/[address] tran Surgical History Surgery Date(Month/Year) ruptured biceps tendon on the right and on the left left medial and left lateral meniscal repair done by Dr. Nettles Heart Cath, Positive Thalliu m stress test for inferior ischemia, Discharged without complications.Report in EHR. [facility]/Dr. Tam Guerra 03/01/[address] guerra that was nor mal per pt 2012 c-scope / Dr Jolley Repeat 10 yr 2018 Lap appendectomy - Dr. Maylin Cartwright 05/[address] scan/CTA Aorta - No clear anerysm or aneurysmal dilitation. Report in EHR. Dr. Barnard 09/06/2020 [facility]. [facility] 03/14/2021, 11/22/2020, 08/16/2020 robotic right inguinal hernia repair he was supposed to have righ t carpal tunnel surgery because he had clearance from dr. tran 2023 acromioclavicular dislocation with surgi merced repair Colonoscopy at the age of 52 [address] Queen Hospitalization History Reason Date(Month/Year) [facility] - Appendicitis, Lap Appendectomy. [facility] 06/03-06/05/2018 [facility] - Heart Cath, Dr. Guerra. As above 03/01/2011 kidney stones surgeries
== END 2025-10-12 16:21 | disposition home or self-care (01) ==
PROVIDERS: Visit Provider Physician Assistant
DX: J06.9 Acute upper respiratory infection, unspecified (principal)

== ENCOUNTER → 2025-10-12 15:43 | Outpatient (BNVA) | payer MEDICARE, OTHER, SELFPAY | PROVIDERS: Visit Provider Physician Assistant | DX: J06.9 Acute upper respiratory infection, unspecified (principal) | CPT/HCPCS: 99212 ==